=== PATIENT | female | born 1985 | race Caucasian/White ===

== ENCOUNTER 2020-03-21 15:56 | Inpatient (IN) ==
[2020-03-21] MEDS ORDERED: NORMAL SALINE 1,000 ML IV PRN (16:07)
[2020-03-21] MEDS ORDERED: ACETAMINOPHEN 1,000 MG/100 ML BTL IV ONE (16:07)
--- NOTE | 2020-03-21 16:11 | ERNOTE ---
Date of Service: 03/21/20 Time Seen by Provider: 03/21/20 15:58 Stated Complaint: fever chills bodyache headache Presenting Symptoms:: cough, fever Source: patient Exam Limitations: no limitations Immunizations: IMMUNIZATION HX Immunizations Up to Date Yes Allergies/Adverse Reactions: Allergies Tetanus Vaccines and Toxoid [Tetanus] Allergy (Verified 10/05/12 02:26) seafood Allergy (Uncoded 10/05/12 02:26) Home Medications: HOME MEDICATIONS NK 03/21/20 [Last Taken Unknown] - Pain Score Pain Score #1 Pain Score: 7 - History of Present Ilness Narrative: The patient is a 34 year old female who presents for fever and dyspnea which has been present since yesterday. There are associated symptoms of frontal headache, body aches and fatigue. The patient reports frontal headache and generalized body aches, 01/19. There are no alleviating factors. There are no aggravating factors. Previous treatments have included: Ibuprofen without improvement, last taken >4 hours. The past medical history includes: noncontributory. The social history is positive for former tobacco use, substance use-injects meth last used on Thursday and smokes marijuana. The patient has had no known ill contacts. Review of Systems - Review of Systems Constitutional: Present: fever, chills, fatigue EYE: Present: no symptoms reported ENT: Present: no symptoms reported. Absent: ear pain, nasal drainage, sore throat Respiratory: Present: shortness of breath, cough Cardiology: Present: no symptoms reported. Absent: chest pain Gastrointestinal/Abdominal: Present: eating less, drinking less. Absent: nausea , vomiting, diarrhea Genitourinary: Present: no symptoms reported. Absent: dysuria, decreased urinary output Musculoskeletal: Present: no symptoms reported Skin: Present: no symptoms reported. Absent: rash Neurological: Present: headache All Other Systems: All systems neg except as marked Medical History (Last Updated 03/21/20 @ 16:56 by Latonya Saleem RN) No pertinent past medical history Surgical History: Surgical History (Last Updated 03/21/20 @ 16:56 by Latonya Saleem RN) History of tonsillectomy and adenoidectomy Hx of section Hx of colonoscopy Social History: (Last Reviewed 03/21/20 @ 16:09 by KATHY Rojas) Tobacco: Smoking Status: Former smoker Physical Exam - Physical Exam General Appearance: Present: wd/wn, alert, moderate distress Head Exam: Present: normal inspection, no evidence of injury Eye Exam: Normal inspection: bilateral Ears, Nose, Throat: Present: dry mucous membranes Neck: Present: normal inspection, nontender, other - no nuchal rigidity, negative Meningeal sign. Absent: tender posterior midline Respiratory: Present: no respiratory distress, no accessory muscle use, chest nontender, decreased breath sounds Cardiovascular/Chest: Present: no murmur, tachycardia Gastrointestinal/Abdominal: Present: normal bowel sounds, nontender, nondistended, soft, no organomegaly Extremity Exam: Present: no edema Neurological Exam: Present: alert, oriented, normal mood/affect, no motor/sensory deficits Skin Exam: Present: normal color, warm/dry Progress - Date and Time Seen: Date and Time: 03/21/20 17:15 Multiple attempts by nursing staff for IV and blood draw. Difficulty with obtaining blood for specimen. Able to initiate IV [employer] for infusion after IV started, will then switch to IV hydration. 03/21/20 18:13 Due to patient's presenting complaint of fever and tachycardia along with WBC 25.9 will initiate antibiotics with MRSA coverage due to patients known IV drug use. 03/21/20 19:29 Urine positive and appears to be the source for infection at this time. Remain awaiting COVID results. Case was discussed at length with , will administer second liter for bolus and then continue patient on maintenance fluids along with addition of k-rider for hypokalemia. Patient remains to have blood cultures pending. 03/21/20 19:54 Patient verbalized understanding of admission. Patient alert and oriented and states feeling slightly better. - Results and Orders Patient's Lab Results:: I have reviewed the patient's lab results. - Vital Signs Patient's Vital Signs:: I have reviewed the patient's vital signs. Vital Signs: Vital Signs 03/21/20 16:02 Temperature 38 C Pulse Rate 112 H Respiratory Rate 20 Blood Pressure 104/65 O2 Sat by Pulse Oximetry 99 - X-Ray X-Ray #1 X-Ray: chest Interpretation: Reviewed by me X-ray Comments: IMPRESSION: No acute cardiopulmonary process. Electronically signed by Lu Del Rio D.O.. - Progress/Reassessment Chief Complaint: Upper Respiratory Symptoms Departure Clinical Impression: Hypokalemia UTI (urinary tract infection) Qualifiers: Urinary tract infection type: site unspecified Hematuria presence: without hematuria Qualified Code(s): N39.0 - Urinary tract infection, site not specified Sepsis Qualifiers: Sepsis type: sepsis due to unspecified organism Sepsis acute organ dysfunction status: unspecified Qualified Code(s): A41.9 - Sepsis, unspecified organism - Departure Disposition: Still a patient Condition: Fair
[2020-03-21 18:06] LABS: Hematocrit 37.1 % (37.0-47.0); Hemoglobin 11.8 gm/dL (12.5-16.0); Mean Cell Volume 85.5 fl (78-100); Mean Corpuscular Hemoglobin 27.2 pg (27-31); Mean Corpuscular Hgb Conc 31.8 g/dl (32-36); Mean Platelet Volume 9.8 fl (8-12.5); Platelet Count 335 K/mm3 (150-450); Red Blood Count 4.34 M/mm3 (4.2-5.4); Red Cell Distribution Width 13.5 % (11.5-14.0); White Blood Count 25.9 K/mm3 (4.0-10.5)
[2020-03-21 18:11] LABS: Total Cells Counted 100
[2020-03-21] MEDS ORDERED: PIPERACILLIN SODIUM/TAZOBACTAM 3.375 GM in DEXTROSE 5 % IN WATER 100 ML IV ONE ×2 (18:12)
[2020-03-21] MEDS ORDERED: VANCOMYCIN/WATER FOR INJ (PEG) 1 GM/200 ML BAG IV ONE (18:12)
[2020-03-21 18:19] LABS: Albumin * 2.8 gm/dl (3.4-5.0); Anion Gap 11.4 mmol/L (6.8-13.8); BUN/Creatinine Ratio 9.8 (9.0-21.6); Bilirubin, Total 0.6 mg/dL (0.0-1.1); Ca. Corrected For Albumin 9.1 mg/dL (8.4-10.2); Calcium * 8.5 mg/dL (7.9-10.9); Carbon Dioxide 25.5 mmol/L (24-32.6); Potassium 2.9 mmol/L (3.4-4.6); Total Protein 6.9 gm/dL (6.2-8.2)
[2020-03-21 18:29] LABS: Atypical (Reactive) Lymph 1 % (0-2); Band 2 % (0-2.0); Lymphocyte 6 % (20-51); Monocyte 5 % (0-9); Neutrophil 86 % (42-75); Neutrophil # 22.3 K/mm3 (1.3-6.0)
[2020-03-21 18:31] LABS: Hypochromia Trace; Platelet Estimate Normal (NORMAL)
[2020-03-21 18:39] LABS: CRP 25.4 mg/dL (0.0-0.9)
[2020-03-21 18:51] LABS: Urine Bilirubin Negative (NEGATIVE); Urine Blood 25 /ul (NEGATIVE); Urine Ketone Negative (NEGATIVE); Urine Protein 30 mg/dL (NEGATIVE); Urine Urobilinogen Normal (NORMAL)
[2020-03-21 19:10] LABS: Cocaine Ur Negative (NEGATIVE); Urine Barbiturate Negative (NEGATIVE); Urine Benzodiazepines Negative (NEGATIVE); Urine Opiates Negative (NEGATIVE); Urine PCP Negative (NEGATIVE)
[2020-03-21 19:12] LABS: Urine THC Positive (NEGATIVE)
[2020-03-21] MEDS ORDERED: NORMAL SALINE 1,000 ML IV ONE ×2 (19:15→19:53)
[2020-03-21 19:20] LABS: Urine Appearance Cloudy (CLEAR); Urine Color Yellow; Urine Nitrite Positive (NEGATIVE)
[2020-03-21 19:21] LABS: Urine Bacteria 4+; Urine Mucus Few - 1+; Urine RBC TRACE /hpf (0-5); Urine WBC 25-50 /hpf (0-5)
[2020-03-21] MEDS: POTASSIUM CHLORIDE IN WATER 100 ML IV SCH ×2 (21:59→23:18)
[2020-03-21] MEDS ORDERED: diphenhydrAMINE HCL 25 MG CAPSULE PO STA (22:10)
[2020-03-21] MEDS: LORazepam 2 MG/ML DISP.SYRIN IV PRN (22:21)
[2020-03-22] MEDS: POTASSIUM CHLORIDE IN WATER 100 ML IV SCH ×2 (00:30→01:52)
[2020-03-22] MEDS: ACETAMINOPHEN 325 MG TABLET PO PRN ×2 (02:18→11:41)
--- NOTE | 2020-03-22 06:46 | HP ---
Chief Complaint - Chief Complaint Date of Service: 03/22/20 Time of Service: 06:46 Chief Complaint: Shortness of breath and fever History of Present Illness: Kika Holliday is a 34-year-old white female who was admitted yesterday on 03/21/2020 because of pain all over as per patient. She was brought to the emergency room because of fever and dyspnea which started 1 day prior to admission. She has no significant past medical history except for polysubstance abuse. She denies any increased frequency of urination, dysuria, coughing, nausea or vomiting, diarrhea. She does admit to headaches located frontally, body aches and fatigue. She took ibuprofen for her diffuse and generalized pain with no success. Her last use of methamphetamine was 4 days ago. She does admit to smoking marijuana as well. She denies being in contact with sick people or COVID positive people. In the Emergency room she was found to have a white blood cell count 25.9, potassium of 2.9, of 2.9 lactic acid , Covid negative, sinus rhythm with borderline right axis deviation, short [place] interval but more importantly normal QT interval. Chest x-ray showed no acute cardiopulmonary findings. Her urinalysis showed urinary tract infection. Urine drug screen was positive for methamphetamine and marijuana. Patient was assessed to have sepsis in the emergency room and was started on IV fluids and IV antibiotics. Medical History (Last Reviewed 03/21/20 @ 21:01 by Kalie Boland RN) No pertinent past medical history Surgical History: Surgical History (Last Reviewed 03/21/20 @ 21:01 by Kalie Boland RN) History of tonsillectomy and adenoidectomy Hx of section Hx of colonoscopy Family History: Family History (Last Updated 03/21/20 @ 21:04 by Kalie Boland RN) Father Lung cancer Social History: (Last Updated 03/21/20 @ 21:04 by Kalie Boland RN) Tobacco: Smoking Status: Current every day smoker Smoking cigarettes per day: 20 Alcohol: alcohol intake: former Substance Use: substance use type: marijuana, methamphetamine Review Of Systems (GEN) - Review of Systems Generalized/Overall Review: Present: Fever, Fatigue. Absent: Weakness, Chills EENTM: Absent: Blurred Vision Respiratory: Absent: Cough, Shortness of Breath, Orthopnea Cardiac: Absent: Chest Pain, Edema, Palpitations Abdominal: Present: Abdominal Pain. Absent: Nausea, Vomiting Genitourinary: Absent: Urgency, Frequency Musculoskeletal: Present: Muscle Pain Neurological: Absent: Anxiety, Depressed Skin: Absent: Lesions, Rash Misc: All systems neg except as marked Immunizations: IMMUNIZATION HX Immunizations Up to Date Yes Allergies/Adverse Reactions: Allergies Allergy/AdvReac Type Severity Reaction Status Date / Time Tetanus Vaccines and Toxoid Allergy Verified 10/05/12 02:26 [Tetanus] seafood Allergy Uncoded 10/05/12 02:26 Home Medications: HOME MEDICATIONS NK 03/21/20 [Last Taken Unknown] Exam - Exam Vital Signs: Vital Signs - Last Taken Temp 38.3 C H 03/22/20 05:00 Pulse 107 H 03/22/20 02:10 Resp 20 03/22/20 02:10 BP 102/53 03/22/20 02:10 Pulse Ox 99 03/22/20 02:10 Constitutional: Present: Alert, Oriented x3, Looks Older than stated age ENT Exam: Present: hearing grossly normal Eye Exam: bilateral eye: normal inspection, PERRL, EOMI, abnormal pupil - Mildly dilated Neck: Present: supple Respiratory: Present: decreased breath sounds, No rales, No wheezing Cardiovascular/Chest: Present: regular rate, rhythm, no JVD, no murmur, tachycardia Abdomen: Present: Normal bowel sounds, soft, nondistended, tender - All over Neurologic: Present: receiving teller II-XII nml as tested, no motor/sensory deficits, oriented x 3 Thoughts: Present: other - Agitated easily Diagnostic Studies: Abnormal Lab Results 03/21/20 03/21/20 03/21/20 Range/Units 17:50 17:50 17:50 WBC 25.9 H (4.0-10.5) K/mm3 Hgb 11.8 L (12.5-16.0) gm/dL MCHC 31.8 L (32-36) g/dl Neutrophils % (Manual) 86 H (42-75) % Lymphocytes % (Manual) 6 L (20-51) % Neutrophils # (Manual) 22.3 H (1.3-6.0) K/mm3 Monocytes # (Manual) 1.3 H (0.0-1.0) k/mm3 Potassium 2.9 L (3.4-4.6) mmol/L Random Glucose 170 H (70-110) mg/dL Lactic Acid, Venous 2.9 H* (0.4-2.0) mmol/L C-Reactive Prot, Quant 25.4 H (0.0-0.9) mg/dL Albumin 2.8 L (3.4-5.0) gm/dl Urine Protein (NEGATIVE) mg/dL Urine Glucose (UA) (NEGATIVE) mg/dL Urine Blood (NEGATIVE) /ul Urine Nitrate (NEGATIVE) Prot Sulfosalicylic Acd (0) mg/dL Ur Leukocyte Esterase (NEGATIVE) /ul Urine WBC (0-5) /hpf Ur Epithelial Cells (0-5) /hpf Urine Bacteria (NONE) Urine Mucus (NONE) Urine Amphetamine (NEGATIVE) Urine Marijuana (THC) (NEGATIVE) 03/21/20 03/21/20 Range/Units 18:15 18:15 WBC (4.0-10.5) K/mm3 Hgb (12.5-16.0) gm/dL MCHC (32-36) g/dl Neutrophils % (Manual) (42-75) % Lymphocytes % (Manual) (20-51) % Neutrophils # (Manual) (1.3-6.0) K/mm3 Monocytes # (Manual) (0.0-1.0) k/mm3 Potassium (3.4-4.6) mmol/L Random Glucose (70-110) mg/dL Lactic Acid, Venous (0.4-2.0) mmol/L C-Reactive Prot, Quant (0.0-0.9) mg/dL Albumin (3.4-5.0) gm/dl Urine Protein 30 H (NEGATIVE) mg/dL Urine Glucose (UA) 100 H (NEGATIVE) mg/dL Urine Blood 25 H (NEGATIVE) /ul Urine Nitrate Positive H (NEGATIVE) Prot Sulfosalicylic Acd 2+ H (0) mg/dL Ur Leukocyte Esterase 25 H (NEGATIVE) /ul Urine WBC 25-50 H (0-5) /hpf Ur Epithelial Cells 10-25 H (0-5) /hpf Urine Bacteria 4+ H (NONE) Urine Mucus Few - 1+ H (NONE) Urine Amphetamine Positive H (NEGATIVE) Urine Marijuana (THC) Positive H (NEGATIVE) Laboratory Results WBC 25.9 K/mm3 (4.0-10.5) H 03/21/20 17:50 RBC 4.34 M/mm3 (4.2-5.4) 03/21/20 17:50 Hgb 11.8 gm/dL (12.5-16.0) L 03/21/20 17:50 Hct 37.1 % (37.0-47.0) 03/21/20 17:50 MCV 85.5 fl (78-100) 03/21/20 17:50 MCH 27.2 pg (27-31) 03/21/20 17:50 MCHC 31.8 g/dl (32-36) L 03/21/20 17:50 RDW 13.5 % (11.5-14.0) 03/21/20 17:50 Plt Count 335 K/mm3 (150-450) 03/21/20 17:50 MPV 9.8 fl (8-12.5) 03/21/20 17:50 Neutrophils % (Manual) 86 % (42-75) H 03/21/20 17:50 Band Neuts % (Manual) 2 % (0-2.0) 03/21/20 17:50 Lymphocytes % (Manual) 6 % (20-51) L 03/21/20 17:50 Monocytes % (Manual) 5 % (0-9) 03/21/20 17:50 Neutrophils # (Manual) 22.3 K/mm3 (1.3-6.0) H 03/21/20 17:50 Lymphocytes # (Manual) 1.6 k/mm3 (1.5-3.5) 03/21/20 17:50 Monocytes # (Manual) 1.3 k/mm3 (0.0-1.0) H 03/21/20 17:50 Atypic/Reactive Lymphs 1 % (0-2) 03/21/20 17:50 Platelet Estimate Normal (NORMAL) 03/21/20 17:50 Hypochromasia Trace 03/21/20 17:50 Sodium 135 mmol/L (132-142) 03/21/20 17:50 Plasma Sodium 136 mmol/L (130-142) 03/21/20 17:50 Potassium 2.9 mmol/L (3.4-4.6) L 03/21/20 17:50 Chloride 101 mmol/L (97-106) 03/21/20 17:50 Carbon Dioxide 25.5 mmol/L (24-32.6) 03/21/20 17:50 Anion Gap 11.4 mmol/L (6.8-13.8) 03/21/20 17:50 BUN 9 mg/dL (3-23) 03/21/20 17:50 Creatinine 0.92 mg/dL (0.4-1.4) 03/21/20 17:50 Est GFR (Non-Af Amer) 74 mL/min (60-130) 03/21/20 17:50 BUN/Creatinine Ratio 9.8 (9.0-21.6) 03/21/20 17:50 Random Glucose 170 mg/dL (70-110) H 03/21/20 17:50 Lactic Acid, Venous 1.8 mmol/L (0.4-2.0) 03/21/20 21:55 Calcium 8.5 mg/dL (7.9-10.9) 03/21/20 17:50 Calcium Adj for Albumin 9.1 mg/dL (8.4-10.2) 03/21/20 17:50 Total Bilirubin 0.6 mg/dL (0.0-1.1) 03/21/20 17:50 AST 34 U/L (0-48) 03/21/20 17:50 ALT 41 U/L (19-67) 03/21/20 17:50 Alkaline Phosphatase 85 U/L (50-170) 03/21/20 17:50 Creatine Kinase 42 U/L (0-259) 03/21/20 17:50 C-Reactive Prot, Quant 25.4 mg/dL (0.0-0.9) H 03/21/20 17:50 Total Protein 6.9 gm/dL (6.2-8.2) 03/21/20 17:50 Albumin 2.8 gm/dl (3.4-5.0) L 03/21/20 17:50 Procalcitonin 0.34 ng/mL (0.05-0.50) 03/21/20 17:50 Urine Color Yellow 03/21/20 18:15 Urine Appearance Cloudy (CLEAR) 03/21/20 18:15 Urine pH 6.0 pH (5.0-7.0) 03/21/20 18:15 Ur Specific [place] 1.020 SP.GR. (1.005-1.010) 03/21/20 18:15 Urine Protein 30 mg/dL (NEGATIVE) H 03/21/20 18:15 Urine Glucose (UA) 100 mg/dL (NEGATIVE) H 03/21/20 18:15 Urine Ketones Negative mg/dL (NEGATIVE) 03/21/20 18:15 Urine Blood 25 /ul (NEGATIVE) H 03/21/20 18:15 Urine Nitrate Positive (NEGATIVE) H 03/21/20 18:15 Urine Bilirubin Negative mg/dl (NEGATIVE) 03/21/20 18:15 Prot Sulfosalicylic Acd 2+ mg/dL (0) H 03/21/20 18:15 Urine Urobilinogen Normal EU/dl (NORMAL) 03/21/20 18:15 Ur Leukocyte Esterase 25 /ul (NEGATIVE) H 03/21/20 18:15 Urine RBC Trace /hpf (0-5) 03/21/20 18:15 Urine WBC 25-50 /hpf (0-5) H 03/21/20 18:15 Ur Epithelial Cells 10-25 /hpf (0-5) H 03/21/20 18:15 Urine Bacteria 4+ (NONE) H 03/21/20 18:15 Urine Mucus Few - 1+ (NONE) H 03/21/20 18:15 Urine Culture Comments Culture to follow 03/21/20 18:15 Urine HCG, Qual Negative (NEGATIVE) 03/21/20 18:15 Urine Opiates Screen Negative (NEGATIVE) 03/21/20 18:15 Barbiturate Screen Negative (NEGATIVE) 03/21/20 18:15 Ur Phencyclidine Scrn Negative (NEGATIVE) 03/21/20 18:15 Urine Amphetamine Positive (NEGATIVE) H 03/21/20 18:15 U Benzodiazepines Scrn Negative (NEGATIVE) 03/21/20 18:15 Urine Cocaine Screen Negative (NEGATIVE) 03/21/20 18:15 Urine Marijuana (THC) Positive (NEGATIVE) H 03/21/20 18:15 SARS-CoV-2 (PCR) Not detected (ND) 03/21/20 18:15 Assessment/Plan - Narrative Narrative: Kika was admitted last night for fever, shortness of breath, diffuse pain all over and was found to have a urinary tract infection and met criteria for sepsis.. Her Gram stain is showing gram-negative bacilli today. We will change her IV Zosyn to IV Rocephin. We will discontinue IV Vanco. We will await final culture. For her hyperthermia, tachycardia, could be related to her infection you can also see that on methamphetamine abuse. I am going to continue with Tylenol in case the increase her fever is secondary to infection that is sending signals to to her hypothalamic thermal regulation center. At the same time I am using it also for mild pain. If this is due to her methaphetamine abuse/withdrawal we are also continuing with her IV Ativan, IV fluids which will help with her hyperthermia (Better yet if we can give her a neuromuscular blockade to help with the hyperthermia but then that will need invasive ventilation) . She is stable hemodynamically at this time and will resort to this only if she becomes unstable. - Assessment/Plan (1) UTI (urinary tract infection) Problem: Acute Qualifiers: Urinary tract infection type: site unspecified Hematuria presence: without hematuria Qualified Code(s): N39.0 - Urinary tract infection, site not specified (2) Sepsis Problem: Acute Qualifiers: Sepsis type: sepsis due to unspecified organism Sepsis acute organ dysfunction status: unspecified Qualified Code(s): A41.9 - Sepsis, unspecified organism (3) Hypokalemia Problem: Acute (4) Methamphetamine abuse Problem: Acute (5) Lactic acidosis Problem: Resolved (6) Leukocytosis Problem: Acute (7) Anemia Problem: Acute
[2020-03-22] MEDS: LORazepam 2 MG/ML DISP.SYRIN IV PRN (06:57)
[2020-03-22] MEDS: NORMAL SALINE 1,000 ML IV PRN ×3 (07:08→19:54)
[2020-03-22] MEDS ORDERED: LORazepam 2 MG/ML DISP.SYRIN IV SCH (08:00)
[2020-03-22 09:30] LABS: Hematocrit 35.7 % (37.0-47.0); Hemoglobin 10.6 gm/dL (12.5-16.0); Mean Cell Volume 91.8 fl (78-100); Mean Corpuscular Hemoglobin 27.2 pg (27-31); Mean Corpuscular Hgb Conc 29.7 g/dl (32-36); Mean Platelet Volume 10.2 fl (8-12.5); Platelet Count 258 K/mm3 (150-450); Red Blood Count 3.89 M/mm3 (4.2-5.4); Red Cell Distribution Width 13.9 % (11.5-14.0); White Blood Count 22.5 K/mm3 (4.0-10.5)
[2020-03-22 09:44] LABS: Total Cells Counted 100
[2020-03-22 09:53] LABS: Blood Urea Nitrogen 7 mg/dL (3-23); Glucose * 90 mg/dL (70-110)
[2020-03-22 09:54] LABS: Anion Gap 14.3 mmol/L (6.8-13.8); BUN/Creatinine Ratio 11.3 (9.0-21.6); Calcium * 8.3 mg/dL (7.9-10.9); Carbon Dioxide 16.9 mmol/L (24-32.6); Chloride 105 mmol/L (97-106); Potassium 4.2 mmol/L (3.4-4.6); Sodium 132 mmol/L (132-142)
[2020-03-22 10:02] LABS: Lymphocyte 9 % (20-51); Monocyte 8 % (0-9); Neutrophil 83 % (42-75); Neutrophil # 18.7 K/mm3 (1.3-6.0); Platelet Estimate Normal (NORMAL); RBC Morphology Normal (NORMAL)
[2020-03-22 10:03] LABS: Albumin * 1.9 gm/dl (3.4-5.0); Ca. Corrected For Albumin 9.7 mg/dL (8.4-10.2)
[2020-03-22 10:14] LABS: Total Protein 5.9 gm/dL (6.2-8.2)
[2020-03-22 10:26] LABS: Bilirubin, Total 0.6 mg/dL (0.0-1.1)
[2020-03-22 10:28] LABS: ALT QNS U/L (19-67); AST QNS U/L (0-48); Alkaline Phosphatase * QNS U/L (50-170)
--- NOTE | 2020-03-22 14:19 | PN ---
Progess Note - Interim Date: 03/22/20 Time: 14:11 Narrative: 03/22/20 14:11 Patient became hypotensive at ~65/40 being lethargic and responding painful stimuli per the nurses. Patient was started on 500 mL fluid bolus and I evaluated the patient. Her blood pressure had come up to ~85/60 and she was responding to her name and able to answer some questions. Patient A/Ox3, able to recall that she was at [facility], got the year correct, and her date. Hypotension most likely still due to sepsis. And her fever and tachycardia likely due to her sepsis and not her methamphetamine use in which we would expect her BP to be elevated. Continue with IV fluids and ABX. If BP continues to go down, we'll transfer the patient to the ICU and begin IV vasopressor drip. 03/22/20 16:03 Stiil hypotensive at 88/44. Will continue IVF at 150 ml/hour. If SBP does not improve to 90 and above in 2 hours.. Will transfer patient to ICU and start on norepinepphrine drip titrate to keep above or equal SBP 90.
[2020-03-22] MEDS ORDERED: NORMAL SALINE 500 ML IV ONE (15:08)
[2020-03-22] MEDS ORDERED: LORazepam 2 MG/ML DISP.SYRIN IV PRN (15:08)
[2020-03-22] MEDS ORDERED: NOREPINEPHRINE BITARTRATE 4 MG in DEXTROSE 5 % IN WATER 496 ML IV PRN ×2 (18:00)
[2020-03-23] MEDS: NORMAL SALINE 1,000 ML IV PRN (02:33)
[2020-03-23] MEDS: ACETAMINOPHEN 325 MG TABLET PO PRN (06:30)
[2020-03-23 08:09] LABS: Hematocrit 31.1 % (37.0-47.0); Hemoglobin 9.8 gm/dL (12.5-16.0); Mean Cell Volume 86.6 fl (78-100); Mean Corpuscular Hemoglobin 27.3 pg (27-31); Mean Corpuscular Hgb Conc 31.5 g/dl (32-36); Mean Platelet Volume 10.2 fl (8-12.5); Neutrophil # 8.6 K/mm3 (1.3-6.0); Neutrophil % 80.9 % (42-75.0); Platelet Count 256 K/mm3 (150-450); Red Blood Count 3.59 M/mm3 (4.2-5.4); Red Cell Distribution Width 13.7 % (11.5-14.0); White Blood Count 10.7 K/mm3 (4.0-10.5)
[2020-03-23 08:32] LABS: Albumin * 2.3 gm/dl (3.4-5.0); Anion Gap 12.2 mmol/L (6.8-13.8); BUN/Creatinine Ratio 5.5 (9.0-21.6); Bilirubin, Total 0.3 mg/dL (0.0-1.1); Ca. Corrected For Albumin 9.1 mg/dL (8.4-10.2); Calcium * 8.1 mg/dL (7.9-10.9); Potassium 3.2 mmol/L (3.4-4.6); Total Protein 5.9 gm/dL (6.2-8.2)
--- NOTE | 2020-03-23 08:46 | DS ---
(1) UTI (urinary tract infection) Problem: Acute Qualifiers: Urinary tract infection type: site unspecified Hematuria presence: without hematuria Qualified Code(s): N39.0 - Urinary tract infection, site not specified (2) Sepsis Problem: Acute Qualifiers: Sepsis type: sepsis due to unspecified organism Sepsis acute organ dysfunction status: unspecified Qualified Code(s): A41.9 - Sepsis, unspecified organism (3) Hypokalemia Problem: Acute (4) Methamphetamine abuse Problem: Acute (5) Lactic acidosis Problem: Resolved (6) Leukocytosis Problem: Acute (7) Anemia Problem: Acute Date of Discharge:: 03/23/20 Hospital Course: Kika Holliday is a 34-year-old white female who was admitted yesterday on 03/21/2020 because of pain all over as per patient. She was brought to the emergency room because of fever and dyspnea which started 1 day prior to admission. She had no significant past medical history except for polysubstance abuse. She denied any increased frequency of urination, dysuria, coughing, nausea or vomiting, diarrhea. She did admit to headaches located frontally, body aches and fatigue. She took ibuprofen for her diffuse and generalized pain with no success. Her last use of methamphetamine was 4 days [employer]. She did admit to smoking marijuana as well. She denied being in contact with sick people or COVID positive people. In the Emergency room she was found to have a white blood cell count 25.9, potassium of 2.9, of 2.9 lactic acid , Covid negative, sinus rhythm with borderline right axis deviation, short [place] interval but more importantly normal QT interval. Chest x-ray showed no acute cardiopulmonary findings. Her urinalysis showed urinary tract infection. Urine drug screen was positive for methamphetamine and marijuana. Patient was assessed to have sepsis in the emergency room and was started on IV fluids and IV antibiotics. Broadspectrum antibiotic was change to IV rocephin and her UCS showed E.Coli . She did have septic shock and her SBP went down as low as 76 or vasopressor on top of her IVF was satred. Her WBC has gone to 10.7 and she has been afebrile for ate leats 24 hours. I told her normally we shift oral antibiotics if they have deferveced for at least 48 hours. She says that her BP normally runs on the low side. She is demanding to go home today and she will be discharged AMA on oral Cipro and follow up with her PCP. Procedures Performed: none Results and Findings: Pending Mircobiology Results 03/21/20 19:00 Blood Blood Culture - Preliminary NO GROWTH 24 HOURS 03/21/20 17:50 Blood Blood Culture - Preliminary NO GROWTH 24 HOURS Lab Pending Results 03/21/20 17:50: WBC 25.9 H, RBC 4.34, Hgb 11.8 L, Hct 37.1, MCV 85.5, MCH 27.2, MCHC 31.8 L, RDW 13.5, Plt Count 335, MPV 9.8, Neutrophils % (Manual) 86 H, Band Neuts % (Manual) 2, Lymphocytes % (Manual) 6 L, Monocytes % (Manual) 5, Neutrophils # (Manual) 22.3 H, Lymphocytes # (Manual) 1.6, Monocytes # (Manual) 1.3 H, Atypic/Reactive Lymphs 1, Platelet Estimate Normal, Hypochromasia Trace 03/21/20 17:50: Sodium 135, Plasma Sodium 136, Potassium 2.9 L, Chloride 101, Carbon Dioxide 25.5, Anion Gap 11.4, BUN 9, Creatinine 0.92, Est GFR (Non-Af Amer) 74, BUN/Creatinine Ratio 9.8, Random Glucose 170 H, Calcium 8.5, Calcium Adj for Albumin 9.1, Total Bilirubin 0.6, AST 34, ALT 41, Alkaline Phosphatase 85, C-Reactive Prot, Quant 25.4 H, Total Protein 6.9, Albumin 2.8 L 03/21/20 17:50: Procalcitonin 0.34 03/21/20 17:50: Lactic Acid, Venous 2.9 H* 03/21/20 17:50: Creatine Kinase 42 03/21/20 18:15: Urine HCG, Qual Negative 03/21/20 18:15: SARS-CoV-2 (PCR) Not detected 03/21/20 18:15: Urine Color Yellow, Urine Appearance Cloudy, Urine pH 6.0, Ur Specific [place] 1.020, Urine Protein 30 H, Urine Glucose (UA) 100 H, Urine Ketones Negative, Urine Blood 25 H, Urine Nitrate Positive H, Urine Bilirubin Negative, Prot Sulfosalicylic Acd 2+ H, Urine Urobilinogen Normal, Ur Leukocyte Esterase 25 H, Urine RBC Trace, Urine WBC 25-50 H, Ur Epithelial Cells 10-25 H, Urine Bacteria 4+ H, Urine Mucus Few - 1+ H, Urine Culture Comments Culture to follow 03/21/20 18:15: Urine Opiates Screen Negative, Barbiturate Screen Negative, Ur Phencyclidine Scrn Negative, Urine Amphetamine Positive H, U Benzodiazepines Scrn Negative, Urine Cocaine Screen Negative, Urine Marijuana (THC) Positive H 03/21/20 21:55: Lactic Acid, Venous 1.8 03/22/20 09:30: WBC 22.5 H, RBC 3.89 L, Hgb 10.6 L, Hct 35.7 L, MCV 91.8, MCH 27.2, MCHC 29.7 L, RDW 13.9, Plt Count 258, MPV 10.2, Neutrophils % (Manual) 83 H, Lymphocytes % (Manual) 9 L, Monocytes % (Manual) 8, Neutrophils # (Manual) 18.7 H, Lymphocytes # (Manual) 2.0, Monocytes # (Manual) 1.8 H, Platelet Estimate Normal, RBC Morphology Normal 03/22/20 09:30: Sodium 132, Plasma Sodium 132, Potassium 4.2 D, Chloride 105, Carbon Dioxide 16.9 L, Anion Gap 14.3 H, BUN 7, Creatinine 0.62, Est GFR (Non-Af Amer) 117 D, BUN/Creatinine Ratio 11.3, Random Glucose 90 D, Calcium 8.3, Calcium Adj for Albumin 9.7, Total Bilirubin 0.6, AST QNS, ALT QNS, Alkaline Phosphatase QNS, Total Protein 5.9 L, Albumin 1.9 L 03/23/20 07:50: WBC 10.7 H D, RBC 3.59 L, Hgb 9.8 L, Hct 31.1 L, MCV 86.6, MCH 27.3, MCHC 31.5 L, RDW 13.7, Plt Count 256, MPV 10.2, Immature Gran % (Auto) 0.50 H, Immature Gran # (Auto) 0.05 H, Neutrophils % 80.9 H, Lymphocytes % 10.8 L, Monocytes % 6.8, Eosinophils % 0.8, Basophils % 0.2, Nucleated RBC % 0.0, Neutrophils # 8.6 H, Lymphocytes # 1.15 L, Monocytes # 0.7, Eosinophils # 0.1, Absolute Basophils 0.0 03/23/20 07:50: Sodium 141, Plasma Sodium 142, Potassium 3.2 L D, Chloride 108 H, Carbon Dioxide 24.0, Anion Gap 12.2, BUN 4, Creatinine 0.73, Est GFR (Non-Af Amer) 97, BUN/Creatinine Ratio 5.5 L, Random Glucose 141 H D, Calcium 8.1, Calcium Adj for Albumin 9.1, Total Bilirubin 0.3, AST 23, ALT 34, Alkaline Phosp hatase 86, Total Protein 5.9 L, Albumin 2.3 L Discharge Location: Home Disposition: Against medical advice Condition: Fair Discharge Activity: Activity as tolerated Discharge Diet: General/regular food Referrals: Yane Oakes DO [Primary Care Provider] - Problem Oriented Discharge Instructions to Patient/Family: Steps to Quit Smoking, [id number] Additional Patient Instructions (free text): Follow up with PCP- Dr. Oakes in 1 week. Prescriptions (Any new or edited meds): Acetaminophen 500 mg PO QID PRN #90 tab PRN Reason: Pain/Fever Transmission Status: Pending to [id number] Ciprofloxacin HCl [Cipro] 500 mg PO BID 7 Days #14 tab Transmission Status: Pending to [id number] Complete Home Medications List: Complete Home Medication List: Acetaminophen 500 mg PO QID PRN #90 tab 03/23/20 Ciprofloxacin HCl [Cipro] 500 mg PO BID 7 Days #14 tab 03/23/20
[2020-03-23] MEDS ORDERED: POTASSIUM CHLORIDE 10 MEQ TABLET.SA PO ONE (09:00)
[2020-03-23 09:49] VITALS: BP 93/56
== END 2020-03-23 09:30 | disposition left against medical advice (07) | DRG 871 ==
LOC: ER 15:56 → MS 19:48
PROVIDERS: ADMIT Internal Medicine; ATTEND Internal Medicine